=== PATIENT | female | born 1975 | race Caucasian/White ===

== ENCOUNTER 2021-05-01 10:10 | Outpatient (CLI) | payer OTHER ==
[2021-05-01] MEDS ORDERED: LEVO112T4 PO (10:41)
[2021-05-01] MEDS ORDERED: SERT50TA28 PO (10:41)
[2021-05-01] MEDS ORDERED: provera PO (10:41)
[2021-05-01] MEDS ORDERED: ASPI81TA45 PO (10:41)
[2021-05-01 11:48] LABS: BASOPHILS % (AUTO) 1 % (0-1); EOSINOPHILS % (AUTO) 2 % (1-7); LYMPHOCYTES % (AUTO) 22 % (22-44); MEAN CORPUSCULAR HEMOGLOBIN 26.9 pg (27.0-34.8); MEAN CORPUSCULAR HGB CONC 32.6 g/dL (32.4-35.8); MEAN PLATELET VOLUME 7.7 fL (7.4-10.4); MONOCYTES % (AUTO) 9 % (2-9); NEUTROPHILS % (AUTO) 66 % (42-75); PLATELET COUNT 351 x10^3/uL (130-400); RED BLOOD COUNT 3.93 x10^6/uL (3.82-5.3); RED CELL DISTRIBUTION WIDTH 14.3 % (9.6-15.2)
[2021-05-01 12:00] LABS: ANION GAP 7 mmol/L (5-15); CALCIUM 8.6 mg/dL (8.5-10.1); CHLORIDE 110 mmol/L (98-107); CREATININE 0.72 mg/dL (0.55-1.02)
== END 2021-05-01 23:59 | disposition home or self-care (01) ==
LOC: STAR 10:10
PROVIDERS: ATTEND Obstetrics & Gynecology
DX: Z01.818 Encounter for other preprocedural examination (principal); N92.0 Excessive and frequent menstruation with regular cycle; D21.9 Benign neoplasm of connective and other soft tissue, unspecified; Z20.822 Contact with and (suspected) exposure to COVID-19
CPT/HCPCS: 36415; 80048; 84702; 85025; 93005; U0003; U0005

== ENCOUNTER 2021-05-08 12:19 | Day surgery (SDC) | payer OTHER ==
[~2021-05-08] VITALS: Ht 167.6 cm; Wt 86.3 kg
[~2021-05-08 12:19] MED LIST: ASPI81TA45 PO; LEVO112T4 PO; SERT50TA28 PO; provera PO
[2021-05-08] MEDS ORDERED: CHLORHEXIDINE 15 ML UDC ONE (12:59)
[2021-05-08 13:00] LABS: HCG UR SG 1.021 (1.003-1.030)
[2021-05-08] MEDS ORDERED: CHLORHEXIDINE 15 ML UDC PO ONE (13:00)
[2021-05-08] MEDS ORDERED: LACTATED RINGERS 1,000 ML IV SCH (13:00)
[2021-05-08] MEDS ORDERED: EPINEPHRINE 1 MG/ML, 1ML ONE (13:11)
[2021-05-08] MEDS ORDERED: BUPIVACAINE/PF 0.25% ONE (13:11)
[2021-05-08] MEDS ORDERED: SILVER NITRATE STICK TP ONE (13:11)
[2021-05-08] MEDS ORDERED: FENTANYL PF 100 MCG/2ML ONE ×2 (13:14→16:26)
[2021-05-08] MEDS ORDERED: MIDAZOLAM 1 MG/ML, 2ML ONE (13:14)
[2021-05-08] MEDS ORDERED: FLUORESCEIN SODIUM 500 MG/5 ML ONE (13:15)
[2021-05-08] MEDS ORDERED: GLYCOPYRROLATE 0.2MG/1ML, 5ML ONE (13:21)
[2021-05-08] MEDS ORDERED: DEXAMETHASONE 4 MG/ML, 1ML ONE (13:21)
[2021-05-08] MEDS ORDERED: NEOSTIGMINE 1 MG/ML, 10ML ONE (13:21)
[2021-05-08] MEDS ORDERED: ONDANSETRON 2MG/ML, 2ML ONE (13:21)
[2021-05-08] MEDS ORDERED: PROPOFOL 10 MG/ML, 20ML ONE (13:21)
[2021-05-08] MEDS ORDERED: SUCCINYLCHOLINE 20 MG/ML, 10ML ONE (13:21)
[2021-05-08] MEDS ORDERED: CEFAZOLIN 1,000 MG ONE (13:21)
[2021-05-08] MEDS ORDERED: ROCURONIUM 10MG/ML,5ML ONE (13:21)
[2021-05-08] MEDS ORDERED: SCOPOLAMINE 1MG PATCH TD SCH (13:30)
[2021-05-08] MEDS ORDERED: SCOPOLAMINE 1MG PATCH TD ONE (13:31)
[2021-05-08] MEDS ORDERED: KETOROLAC 30 MG/1 ML IVPush PRN ×2 (14:00)
[2021-05-08] MEDS ORDERED: ONDANSETRON 2MG/ML, 2ML IVPush PRN (14:00)
[2021-05-08] MEDS ORDERED: PROMETHAZINE 25 MG/ML, 1ML IVPush PRN (14:00)
[2021-05-08] MEDS ORDERED: HYDROmorphone 1 MG/ML, 1ML INJ IVPush PRN (14:00)
[2021-05-08] MEDS ORDERED: DIPHENHYDRAMINE 50 MG/ML, 1ML IVPush PRN (14:00)
[2021-05-08] MEDS ORDERED: HYDROcodone/APAP 7.5-325MG/15ML UDC PO PRN (14:00)
[2021-05-08] MEDS ORDERED: ACETAMINOPHEN 325 MG TABLET PO PRN (14:00)
[2021-05-08] MEDS ORDERED: MEPERIDINE/PF 25MG/0.5ML IVPush PRN (14:00)
[2021-05-08] MEDS ORDERED: PHENYLEPHRINE 10 MG/ML ONE (14:28)
[2021-05-08] MEDS ORDERED: HYDROcodone/APAP 7.5-325MG/15ML UDC ONE (16:26)
[2021-05-08] MEDS: FENTANYL PF 100 MCG/2ML IV PRN ×2 (16:28→16:33)
== END 2021-05-08 19:05 | disposition home or self-care (01) ==
LOC: OUT 12:19
PROVIDERS: ATTEND Obstetrics & Gynecology
DX: N92.0 Excessive and frequent menstruation with regular cycle (principal); N93.8 Other specified abnormal uterine and vaginal bleeding; D25.1 Intramural leiomyoma of uterus; N88.8 Other specified noninflammatory disorders of cervix uteri; Z88.5 Allergy status to narcotic agent; Z88.8 Allergy status to other drugs, medicaments and biological substances; Z88.1 Allergy status to other antibiotic agents; Z98.890 Other specified postprocedural states; Z98.51 Tubal ligation status; Z79.899 Other long term (current) drug therapy; Z79.82 Long term (current) use of aspirin
CPT/HCPCS: 58552; 81025; 88307; J0171; J0330; J0690; J1100; J2250; J2370; J2405; J2704; J2710; J3010; J7120